=== PATIENT | male | born 2000 | race Two or more races ===

== ENCOUNTER 2018-12-30 21:38 | Emergency (ER) | payer BC ==
[~2018-12-30] VITALS: Ht 193 cm; Wt 76.2 kg
--- NOTE | 2018-12-30 21:58 | NUR ---
MD AT BEDSIDE FOR HX AND PHYSICAL
[2018-12-30 22:21] LABS: BASOPHILS % (AUTO) 0.7 % (0.0-2.0); EOSINOPHILS # (AUTO) 0.4 K/uL (0.0-0.7); HEMATOCRIT 42.5 % (36.7-47.1); HEMOGLOBIN 14.3 g/dL (12.5-16.3); LYMPHOCYTES # (AUTO) 2.7 K/uL (20.0-40.0); LYMPHOCYTES % (AUTO) 40.7 % (20.5-74.5); MEAN CORPUSCULAR HEMOGLOBIN 29.5 uug (23.8-33.4); MEAN CORPUSCULAR HGB CONC 34 g/dL (32.5-36.3); MEAN CORPUSCULAR VOLUME 87.8 fL (73.0-96.2); MONOCYTES # (AUTO) 0.5 K/uL (2.0-10.0); MONOCYTES % (AUTO) 7.6 % (0-11); PLATELET COUNT (AUTO) 205 K/uL (152-348); RED BLOOD CELL COUNT(AUTO) 4.84 MIL/uL (4.06-5.63); WHITE BLOOD COUNT (AUTO) 6.6 K/uL (3.6-10.2)
[2018-12-30 22:23] LABS: POTASSIUM 3.7 mmol/L (3.5-5.1)
[2018-12-30 22:29] LABS: BILIRUBIN,DIRECT 0.1 mg/dL (0.0-0.2); BILIRUBIN,TOTAL 0.5 mg/dL (0.2-1.0); TOTAL PROTEIN, SERUM 7.5 g/dL (6.4-8.2)
[2018-12-30 22:44] LABS: MAGNESIUM 1.9 mg/dL (1.8-2.4); PHOSPHOROUS 4.5 mg/dL (2.5-4.9)
[2018-12-30 22:55] LABS: THYROID STIMULATING HORMONE 5.423 mIU/mL (0.358-3.740)
--- NOTE | 2018-12-30 23:23 | NUR ---
Patient discharged to home in stable conditon. Written and verbal after care instructions given. Patient verbalizes understanding of instructions. AMBULATORY W/ STABLE GAIT. ALL BELONGINGS W/ PT
[2018-12-30 23:36] VITALS: BP 130/75
== END 2018-12-30 23:22 | disposition home or self-care (01) ==
LOC: ER 21:45
DX: R42 Dizziness and giddiness (principal); R53.1 Weakness; R07.9 Chest pain, unspecified; F41.9 Anxiety disorder, unspecified
CPT/HCPCS: 36415; 70030-TC; 71045; 83735; 84100; 84443; 85025; 93005; A4663